=== PATIENT | female | born 1975 | race Caucasian/White ===

== ENCOUNTER → 2022-01-15 | Outpatient (CLI) | payer BC ==
[~2022-01-15] MED LIST: MULTIVITAMINS1 EAC6 PO; SPIRONOLACTONE25 MG PO; VITAMIN C; VITAMIN D31250 MCG PO; VITAMIN D350 MCG PO; WARFARIN SODIUM2 MG PO; ZINC50 M2 PO
[2022-01-15 14:38] LABS: HEMOGLOBIN 13.5 gm/dl (12.3-15.3); RED BLOOD COUNT 4.67 M/UL (4.00-5.10); WHITE BLOOD COUNT 9.9 K/UL (4.5-11.0)
[2022-01-15 15:02] LABS: BUN/CREATININE RATIO 15 (0-10)
== END ==
LOC: OPSV2 12:30
PROVIDERS: Obstetrics & Gynecology
DX: Z01.812 Encounter for preprocedural laboratory examination (principal); N92.0 Excessive and frequent menstruation with regular cycle
CPT/HCPCS: 80048; 81001; 85025; 85610; 85730

== ENCOUNTER → 2022-01-31 | Day surgery (SDC) | payer BC ==
[~2022-01-31] MED LIST changes: +HYDROCODON-ACE1 EAC4 PO; +LOVENOX80 MG/0.8 SC
== END | disposition home or self-care (01) ==
LOC: OR 07:30
DX: N92.0 Excessive and frequent menstruation with regular cycle (principal); N80.9 Endometriosis, unspecified; D64.9 Anemia, unspecified; I82.409 Acute embolism and thrombosis of unspecified deep veins of unspecified lower extremity; Z79.01 Long term (current) use of anticoagulants; Z79.899 Other long term (current) drug therapy; Z88.5 Allergy status to narcotic agent; Z91.011 Allergy to milk products; Z91.012 Allergy to eggs; Z91.040 Latex allergy status; Z91.013 Allergy to seafood
CPT/HCPCS: 84703; 93005; J1100; J2001; J2250; J2405; J2704; J2795; J3010